=== PATIENT | male | born 1965 | race African-American/Black ===

== ENCOUNTER 2024-09-13 09:16 | Outpatient (CLI) | payer OTHER | END 2024-09-13 09:17 | disposition home or self-care (01) | LOC: CSHCT 09:16 | PROVIDERS: ATTEND Internal Medicine Hematology & Oncology | DX: C25.0 Malignant neoplasm of head of pancreas (principal); C78.7 Secondary malignant neoplasm of liver and intrahepatic bile duct | CPT/HCPCS: 71260; 74177 ==